=== PATIENT | female | born 1960 | race Caucasian/White ===

== ENCOUNTER → 2017-07-27 14:52 | Outpatient (CLI) | payer OTHER, SELFPAY ==
--- NOTE | 2017-07-27 | DI.MG.S_ITS ---
BILATERAL DIGITAL SCREENING MAMMOGRAM 3D/2D WITH CAD: 07/27/2017 CLINICAL: Routine screening. Family history of breast cancer. Comparison is made to exams dated: 07/26/2015 mammogram - [facility], 05/26/2010 mammogram, and 01/06/2009 mammogram - [facility]. The tissue of both breasts is heterogeneously dense. This may lower the sensitivity of mammography. Current study was also evaluated with a Computer Aided Detection (CAD) system. No significant masses, calcifications, or other findings are seen in either breast. There has been no significant interval change. IMPRESSION: NEGATIVE There is no mammographic evidence of malignancy. A 1 year screening mammogram is recommended. This exam was interpreted at Station ID: [id number]. NOTE: For mammograms, a report in lay terms will be sent to the patient. Approximately 15% of breast malignancies will not be visualized mammographically. In the management of a palpable breast mass, a negative mammogram must not discourage biopsy of a clinically suspicious lesion. Electronically Signed By: Mary mathews/sherry:07/30/2017 07:29:27 letter sent: Normal Exam ACR BI-RADS Category 1: Negative 3341F
== END ==
PROVIDERS: Family Provider Internal Medicine; PCP Internal Medicine; Visit Provider Internal Medicine
DX: Z12.31 Encounter for screening mammogram for malignant neoplasm of breast (principal)
CPT/HCPCS: 77063; 77067

== ENCOUNTER → 2017-09-19 10:02 | Outpatient (CLI) | payer OTHER, SELFPAY ==
[2017-09-19 10:45] LABS: Add Manual Diff / Slide Review NO; Basophils Percent Auto 0.9 % (0-2); Eosinophils Percent Auto 0.6 % (2-4); Mean Corpuscular HGB Conc 34.2 % (30-36); Mean Corpuscular Hemoglobin 32.7 PG (26-34); Mean Corpuscular Volume 95.7 fL (80-100); Monocytes Percent Auto 8.4 % (3-14); Neutrophils Absolute Auto 3100 /uL (3000-5900); Neutrophils Percent Auto 56.1 % (50-75); Platelet Count 200 X10^3/uL (150-400); Red Blood Cell Count 3.97 X10^6/uL (4.0-5.2); Red Cell Distribution Width 12.1 % (11.6-14.8); White Blood Cell Count 5.5 X10^3/uL (4.5-11.0)
[2017-09-19 11:37] LABS: Alanine Aminotransferase 53 IU/L (9-52); Albumin 4.8 g/dL (3.5-5.0); Albumin Globulin Ratio 1.5 (1.0-2.8); Alkaline Phosphatase 109 U/L (38-126); Aspartate Aminotransferase 49 IU/L (14-36); BUN Creatinine Ratio 33.3 (6-22); Bilirubin Total 0.5 mg/dL (0.2-1.3); Blood Urea Nitrogen 20 mg/dL (7-17); Calcium 10.3 mg/dL (8.4-10.2); Carbon Dioxide 32 mmol/L (22-32); Chloride 97 mmol/L (98-107); Estimated Glomerular Filt Rate > 60.0 mL/min (>60); Globulin 3.1 g/dL (1.7-4.1); Glucose 85 mg/dL (70-100); HEMOLYSIS < 15 (0-50); Potassium 3.7 mmol/L (3.4-5.1); Sodium 141 mmol/L (137-145); Total Protein 7.9 g/dL (6.3-8.2)
[2017-09-19 11:47] LABS: HIV 1 and 2 Antibody NEGATIVE (NEGATIVE)
[2017-09-19 12:06] LABS: Cancer Antigen 125 < 6 U/mL (0-35); Thyroid Stimulating Hormone 3.61 uIU/mL (0.47-4.68)
[2017-09-19 12:12] LABS: Hep C Virus Ab w/Reflex Quant NEGATIVE s/c (NEGATIVE)
== END ==
PROVIDERS: Family Provider Internal Medicine; PCP Internal Medicine; Visit Provider Internal Medicine
DX: R64 Cachexia (principal)
CPT/HCPCS: 36415; 80053; 82378; 84443; 85025; 86304; 86703; 86803

== ENCOUNTER → 2017-10-21 12:44 | Outpatient (CLI) | payer OTHER, SELFPAY ==
[2017-10-21 13:32] LABS: Alanine Aminotransferase 49 IU/L (9-52); Albumin 4.4 g/dL (3.5-5.0); Albumin Globulin Ratio 1.5 (1.0-2.8); Alkaline Phosphatase 78 U/L (38-126); Aspartate Aminotransferase 43 IU/L (14-36); BUN Creatinine Ratio 25.7 (6-22); Bilirubin Total 0.5 mg/dL (0.2-1.3); Blood Urea Nitrogen 18 mg/dL (7-17); Calcium 9.5 mg/dL (8.4-10.2); Carbon Dioxide 35 mmol/L (22-32); Chloride 99 mmol/L (98-107); Estimated Glomerular Filt Rate > 60.0 mL/min (>60); Globulin 2.9 g/dL (1.7-4.1); Glucose 94 mg/dL (70-100); HEMOLYSIS < 15 (0-50); Potassium 3.8 mmol/L (3.4-5.1); Sodium 141 mmol/L (137-145); Total Protein 7.3 g/dL (6.3-8.2)
[2017-10-24 17:18] LABS: Fecal Immunochemical Test NOT DETECTED
== END ==
PROVIDERS: PCP Internal Medicine; Visit Provider Internal Medicine
DX: R64 Cachexia (principal); Z12.11 Encounter for screening for malignant neoplasm of colon; R94.5 Abnormal results of liver function studies
CPT/HCPCS: 36415; 80053; 82274

== ENCOUNTER → 2017-12-18 10:21 | Outpatient (CLI) | payer OTHER, SELFPAY ==
[2017-12-18 14:28] LABS: Erythrocyte Sedimentation Rate 10 MM/HR (0-20)
[2017-12-18 14:58] LABS: C-Reactive Protein Quant < 0.5 mg/dL (<1.0); Rheumatoid Factor < 8.6 IU/mL (<12.0)
[2017-12-20 15:07] LABS: ANA Screen, IFA Negative (Negative)
== END ==
PROVIDERS: PCP Internal Medicine; Visit Provider Internal Medicine
DX: M25.541 Pain in joints of right hand (principal); M25.542 Pain in joints of left hand
CPT/HCPCS: 85651; 86038; 86140; 86430

== ENCOUNTER → 2020-07-07 14:16 | Outpatient (CLI) | payer OTHER, MEDICAID, SELFPAY ==
--- NOTE | 2020-07-07 | DI.RAD.S_ITS ---
PROCEDURE: XR FOOT RT MIN 3V INDICATIONS: FOOT PAIN TECHNIQUE: 3 views of the foot were acquired. COMPARISON: None. FINDINGS: Bones: No fractures or dislocations. No suspicious bony lesions. Soft tissues: No tibiotalar joint effusion. Achilles tendon appears normal. IMPRESSION: No fracture. No osseous lesion. If symptoms and/or clinical suspicion for pathology persists, further assessment with advanced imaging (e.g. CT, MRI or bone scan) should be considered. Dictated by: Geri Laguerre MD, PhD on 07/07/2020 at 18:22 Approved by: Geri Laguerre MD, PhD on 07/07/2020 at 18:23
--- NOTE | 2020-07-07 | DI.RAD.S_ITS ---
PROCEDURE: XR FOOT LT MIN 3V INDICATIONS: FOOT PAIN TECHNIQUE: 3 views of the foot were acquired. COMPARISON: None. FINDINGS: Bones: No fractures or dislocations. No suspicious bony lesions. Soft tissues: No tibiotalar joint effusion. Achilles tendon appears normal. IMPRESSION: No osseous lesion. If symptoms and/or clinical suspicion for pathology persists, further assessment with advanced imaging (e.g. CT, MRI or bone scan) should be considered. Dictated by: Geri Laguerre MD, PhD on 07/07/2020 at 18:21 Approved by: Geri Laguerre MD, PhD on 07/07/2020 at 18:22
== END ==
PROVIDERS: Family Provider Internal Medicine; PCP Internal Medicine; Referring Provider Internal Medicine; Visit Provider Internal Medicine
DX: M79.671 Pain in right foot (principal); M79.672 Pain in left foot
CPT/HCPCS: 73620; 73630

== ENCOUNTER → 2020-07-19 16:21 | Outpatient (CLI) | payer OTHER, MEDICAID, SELFPAY ==
--- NOTE | 2020-07-19 | DI.MG.S_ITS ---
BILATERAL DIGITAL SCREENING MAMMOGRAM 3D/2D WITH CAD: 07/19/2020 CLINICAL: Routine screening. Family history of breast cancer. Comparison is made to exams dated: 07/27/2017 mammogram, 07/26/2015 mammogram - [facility], and 05/26/2010 mammogram - [facility]. The tissue of both breasts is heterogeneously dense. This may lower the sensitivity of mammography. Current study was also evaluated with a Computer Aided Detection (CAD) system. No significant masses, calcifications, or other findings are seen in either breast. There has been no significant interval change. IMPRESSION: NEGATIVE There is no mammographic evidence of malignancy. A 1 year screening mammogram is recommended. This exam was interpreted at Station ID: [id number]. NOTE: For mammograms, a report in lay terms will be sent to the patient. Approximately 15% of breast malignancies will not be visualized mammographically. In the management of a palpable breast mass, a negative mammogram must not discourage biopsy of a clinically suspicious lesion. Electronically Signed By: Faby rhodes/sherry:07/19/2020 17:02:25 letter sent: Normal Exam ACR BI-RADS Category 1: Negative 3341F
== END ==
PROVIDERS: Family Provider Internal Medicine; PCP Internal Medicine; Referring Provider Internal Medicine; Visit Provider Internal Medicine
DX: Z12.31 Encounter for screening mammogram for malignant neoplasm of breast (principal); Z80.3 Family history of malignant neoplasm of breast
CPT/HCPCS: 77063; 77067

== ENCOUNTER → 2020-08-12 08:36 | Outpatient (CLI) | payer OTHER, MEDICAID, SELFPAY ==
[2020-08-12] MEDS: COVID-19 VACC #2, MRNA(MOD) 100 MCG/0.5 ML VIAL IM (08:42)
== END ==
PROVIDERS: Family Provider Internal Medicine; PCP Internal Medicine; Visit Provider Internal Medicine
DX: Z23 Encounter for immunization (principal)
CPT/HCPCS: 0012A; 91301

== ENCOUNTER → 2022-07-17 11:42 | Outpatient (CLI) | payer OTHER, MEDICAID, SELFPAY ==
--- NOTE | 2022-07-17 | DI.MG.S_ITS ---
BILATERAL DIGITAL SCREENING MAMMOGRAM 3D/2D WITH CAD: 07/17/2022 CLINICAL: Routine screening. Family history of breast cancer. Comparison is made to exams dated: 07/19/2020 mammogram, 07/27/2017 mammogram, and 07/26/2015 mammogram - [facility]. Both breasts are heterogeneously dense, which may obscure small masses (category c / 51-75% glandular tissue). Current study was also evaluated with a Computer Aided Detection (CAD) system. No significant masses, calcifications, or other findings are seen in either breast. There has been no significant interval change. IMPRESSION: NEGATIVE There is no mammographic evidence of malignancy. A 1 year screening mammogram is recommended. Based on the Tyrer Cuzick model (a risk assessment model) the patient's lifetime risk is 9.3% and her 10 year risk is 3.8%. According to the ACR, ACS, and NCCN guidelines, an annual breast MRI exam along with mammogram is recommended if the patient's lifetime risk is 20% or greater. This exam was interpreted at Station ID: [id number]. NOTE: For mammograms, a report in lay terms will be sent to the patient. Approximately 15% of breast malignancies will not be visualized mammographically. In the management of a palpable breast mass, a negative mammogram must not discourage biopsy of a clinically suspicious lesion. Electronically Signed By: Faby rhodes/sherry:07/17/2022 16:39:19 letter sent: Normal Exam ACR BI-RADS Category 1: Negative 3341F
--- NOTE | 2022-07-17 | DI.RAD.S_ITS ---
Bone Density Report Name: HUGO ESCOBAR Age: 62 Sex: Female Ethnicity: White Date of : 1960 Indication: postmenopausal; screening for osteoporosis; Referring Provider: FLORA JOHNSON Study: Bone densitometry was performed. Exam Date: July 17, 2022 Accession number: [id number] Bone Density: Region BMD T-score Z-score Classification AP Spine(L1-L4) 0.889 -1.4 0.0 Osteopenia Femoral Neck (Left) 0.562 -2.6 -1.3 Osteoporosis Total Hip (Left) 0.585 -2.9 -2.0 Osteoporosis Femoral Neck (Right) 0.517 -3.0 -1.7 Osteoporosis Total Hip (Right) 0.630 -2.6 -1.6 Osteoporosis Total Hip Mean 0.608 -2.8 -1.8 Osteoporosis World Health Organization criteria for BMD impression classify patients as: Normal (T-score at or above -1.0), Osteopenia (T-score between -1.0 and -2.5), or Osteoporosis (T-score at or below -2.5). Impression: The patient has osteoporosis, based on the Right Femoral Neck T-score. Discussion: INCREASED RISK OF FRACTURE. BONE DENSITY IS UNDESIRABLY LOW AT ONE OR MORE SKELETAL SITES, CONSISTENT WITH POSTMENOPAUSAL OSTEOPOROSIS. This patient's lowest T-score meets the World Health Organization's (WHO) criteria for osteoporosis at one or more sites (T-score -2.5 or below). In untreated patients, the risk of osteoporotic fracture increases approximately two-fold for each 1.0 SD decrease in T-score. Low bone density is not the only risk factor for fracture; also consider factors such as patient's age, frailty or poor health, risk of falling, risk of injury, previous osteoporotic fracture, family history of osteoporosis, cigarette smoking, low body weight, etc. Not everyone with low bone mineral density has osteoporosis; osteomalacia and other metabolic bone disorders should also be considered. Patients who have osteoporosis should be evaluated for specific diseases and conditions (secondary causes) that may cause or contribute to bone loss. The [place] Association of Clinical Endocrinologists (AACE) and National Osteoporosis Foundation (NOF) recommend pharmacologic intervention for all postmenopausal women whose T-score is in this range. The patient should follow a healthful lifestyle (good nutrition with adequate calcium and vitamin D, and appropriate weight-bearing exercise). Follow-Up: Consider a repeat BMD and Vertebral Fracture Assessment (VFA) exam in 2 years or sooner if medically necessary, to reassess this patient's status. Reported by: RYAN NORIEGA M.D. on 07/17/2022 12:02:00 PM.
== END ==
PROVIDERS: Family Provider Internal Medicine; PCP Internal Medicine; Referring Provider Internal Medicine; Visit Provider Internal Medicine
DX: Z12.31 Encounter for screening mammogram for malignant neoplasm of breast (principal); M81.0 Age-related osteoporosis without current pathological fracture; Z80.3 Family history of malignant neoplasm of breast
CPT/HCPCS: 77063; 77067; 77080

== ENCOUNTER 2022-08-28 10:30 | Outpatient (RCR) | payer OTHER, MEDICAID, SELFPAY ==
--- NOTE | 2022-08-23 17:44 | PT.OIE ---
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) Past Medical History (Last Updated 09/01/17 @ 22:19 by Sirisha Bey) Shoulder pain (~2007) Skin cancer (~2004) Past Surgical History (Last Updated 09/01/17 @ 22:19 by Sirisha Bey) Anesthesia History of shoulder surgery Status post rotator cuff repair (~2004) Visit Care Team Role Provider Type EVA Sigala Attending Provider Advanced [employer]oples[employer] Business Analyst Family Provider Primary Care Provider Referring Provider Specialty: [facility] Practice Address: [address] [place] [address], [facility] Email: [email or web address] Physical Therapy Initial Evaluation PT-OP-A Visit Information Start: 08/17/22 18:46 Freq: Status: Active Protocol: Document 08/23/22 11:24 LRN (Rec: 08/23/22 12:24 LRN [id number]) Out-Patient Physical Therapy Visit Information Visit Information Visit Type Initial Evaluation Visit Start Time 11:25 Visit Stop Time 12:17 Total Visit Minutes 49 Visit Number 1 Evaluation Information Evaluation Date 08/23/22 Precautions Precautions Osteoporosis. Unknown bump of lateral R wrist that could be a cyst. R RC surgery (> 10 yrs ago with residual pain when sleeping on it). PT-OP-B Current Condition Start: 08/17/22 18:46 Freq: Status: Active Protocol: Document 08/23/22 11:24 LRN (Rec: 08/23/22 12:24 LRN [id number]) Current Condition History of Current Condition Onset Date 10/2021 Current Complaints R thumb and medial wrist History of Current Condition Insidious onset of bump on anterior R lateral wrist 2021. Pt states she was seen in [place], [place], and through ultrasound was told there was a pulse to it and was told she needed further testing, but she did not return for further testing. In 07/2022 she went to [facility] and was told it is probably a ganglion cyst and was sent to physical therapy. Pt referral for Palmar fascial fibromatosis, ganglion cyst R wrist and L wrist pain. Pt denies having L wrist pain. Pt reports pain in R thumb, some days, but no pattern to the pain. Her primary concern is the cyst on the R wrist and a bump on a L finger. Prior Treatments and Tests Pt reports an Ultrasound to R lateral wrist bump, done in [place], [place] did not lead to a diagnosis. Future Testing and Treatments Planned None Developmental History Developmental History PMH reported: R RC surgery, Osteoporosis, Arthritis. Treatment Goals Patient/Caregiver Goals Pt goal: improve R hand strength (pt R handed) to improve ability to open jars, and mprove endurance to writing. Personal Factors Other Personal Factors That May Effect Osteoporosis (-3.2) Therapy/Recovery PT-OP-C Subjective Start: 08/17/22 18:46 Freq: Status: Active Protocol: Document 08/23/22 11:24 LRN (Rec: 08/23/22 12:24 LRN [id number]) Patient Questionnaires Quick Dash- Upper Extremity Quick Dash UE Score 25 Quick Dash UE Impairment 20 to 39% Impaired (Score 20- 39) OP-PT Pain Assessment Pain Assessment Grid Paper Pain Assessment Grid Completed Yes Location R thumb Pain Location Details R Thenar [place] and lateral border of thumb Intensity 2 Scale Used Numeric (0 - 10) Description Aching PT-OP-J Posture/Palpation/Skin Start: 08/17/22 18:46 Freq: Status: Active Protocol: Document 08/23/22 11:24 LRN (Rec: 08/23/22 12:24 LRN [id number]) Posture Evaluation Position Standing Head/C-Spine Posture Side Bent Left Shoulder Posture (L) Elevated Scapula Posture (L) Elevated Arm Posture (L) Internally Rotated,(R) Internally Rotated Pelvis Posture (L) Iliac Crest Superior Sitting Arm Posture (L) Internally Rotated,(R) Internally Rotated Comments Posture Comments Level greater trochanters. Tilt of lumbar spine to the left. Palpation Assessment Location Palm of hands Palpation Location Palm of hands Palpation Findings Soft Tissue Tightness Palpation Details Tightening of finger flexor tendons. L wrist Palpation Location L wrist Palpation Details No pain R thumb Palpation Location Lateral R thumb Opponens. Palpation Findings Tenderness R wrist Palpation Location General wrist region of carpal bones (with PA) Palpation Findings Tenderness Palpation Details Soft bump on radial side of index finger flexor tendon ( FDP). Compression did not elicit pain, but pt reported when wrapped it is painful. Skin Assessment Other Assessments Skin Assessment Comments Skin is thin and fragile. Tightening of the skin and fascia of the palms bilaterally. PT-OP-K Range of Motion Start: 08/17/22 18:46 Freq: Status: Active Protocol: Document 08/23/22 11:24 LRN (Rec: 08/23/22 12:24 LRN [id number]) Wrist Goniometric Range of Motion Wrist Right Flexion Active (degrees) 65 Extension Active (degrees) 64 Ulnar Deviation Active (degrees) 22 Radial Deviation Active (degrees) 22 Left Flexion Active (degrees) 70 Extension Active (degrees) 60 Ulnar Deviation Active (degrees) 20 Radial Deviation Active (degrees) 18 Thumb Goniometric Range of Motion Thumb Right CMC Extension Active (degrees) 45 Opposition to 5th Digit Base (cm) 0 Comments CMC AB: 60 deg's Left CMC Extension Active (degrees) 45 Opposition to 5th Digit Base (cm) 0 Comments CMC AB is 50 deg's. PT-OP-L Special Tests Start: 08/17/22 18:46 Freq: Status: Active Protocol: Document 08/23/22 11:24 LRN (Rec: 08/23/22 12:24 LRN [id number]) Special Tests Wrist/Hand Special Tests [facility] Subluxation Test Results Neg for R wrist PT-OP-M Strength Start: 08/17/22 18:46 Freq: Status: Active Protocol: Document 08/23/22 11:24 LRN (Rec: 08/23/22 12:24 LRN [id number]) Wrist Strength Wrist Manual Muscle Testing Right Comments 5/5 all motions. Tenderness in lateral medial side of wrist with flex UD, and sup/pron. Left Comments 5/5 all motions. Finger/Thumb Strength Finger Manual Muscle Testing Left Thumb Comments All 5/5 Right Thumb Comments All 5/5 Hand Nitric Acid Concentrator Operator/Pinch Strength Hand Dominance Hand Dominance Right Hand Strength Right Comments Nitric Acid Concentrator Operator strength in kgs (3 trials taken): Right: 14kg/30#, 19kg/20#, 8kg/18# (Norm for female age 60-64 is 25 R). Left Comments Nitric Acid Concentrator Operator strength in kgs (3 trials taken): Left: 18 kg/24#, 12kg, ?22#, 10/21# (Norm for female age 60-64 is 20.7 L). PT-OP-Q Treatments Start: 08/17/22 18:46 Freq: Status: Active Protocol: Document 08/23/22 11:24 LRN (Rec: 08/23/22 12:24 LRN [id number]) Self-Care/Home Management Treatment Education Patient Education Home Exercise Program Other Education Discussed results of evaluation, goals, and plan of care (POC). Pt agreeable to goals and POC. Activities Self-Care/Home Management Activities I/S pt in active wrist flex/ ext/sup/pron/UD/RD ROM and discussed use of wrist compression wrap of bracelet form coverer pressure to prevent pain. PT-OP-T Assessment and Plan Start: 08/17/22 18:46 Freq: Status: Active Protocol: Document 08/23/22 11:24 LRN (Rec: 08/23/22 12:24 LRN [id number]) Physical Therapy Assessment Rehab Potential Rehabilitation Potential Good Evaluation Complexity Number of Personal Factors/Comorbidities 1-2 Number of Body Systems Impaired 4 or More Clinical Presentation at Evaluation Evolving Impairments Impairments Activity Tolerance,ROM,Soft Tissue Mobility,Strength Other Impairments Ganglion cyst Goals Two Impairment Decreased R hand strength Impairment Nitric Acid Concentrator Operator strength: (norm for female age 60-64 is 25kg R, 20 .7 kg L). R hand: 14kg/30#, 19kg/20#, 8kg/18#, L hand: 18 kg/24#, 12kg, ?22# , 10/21# Custodial Goal (LTG) Improve R hand strength to improve ability to open jars, and improve endurance for writing without hand fatiguing . LTG Duration 09/22/22 One Impairment HEP Short Term Goal (STG) Pt will be educated in edema management of cryotherapy and contrast bath treatment. STG Duration 09/07/22 Glazier Stained Glass Goal (LTG) Pt will be educated in a self long-term exer program of wrist ROM (flexion/ext), hand/ fingers (ext) strength hand ( opponens, gripping). LTG Duration 09/22/22 Assessment Summary Assessment Pt is a 62 yo female who presents with concerns of a bump on her R anterior wrist that appears to be a ganglion cyst that is not painful on palpation and does not appear to hinder her wrist mobility. She does show strength loss with R epic application coordinator strength of 14kg R , 18kg L (norm for female age 60-64 is 25kg R, 20.7 kg L). The pt has mild decrease in active wrist flexion and only reports pain at the R wrist with opponens of R thumb and 5th digit. With palpation she has mild discomfort at the R wrist small bones. She does appear to have tightening of her palmar fascia (Dupuytren) bilaterally and tightening of her finger flexor tendons. She denies any L wrist pain. The pt would benefit from skilled physical therapy for R hand/wrist/thumb strengthening, R wrist ROM ex' s and pt education in self care of inflammation and pain (cryotherapy and contrast bath , wrapping). The pt's skin is thin and fragile and would not be appropriate for Kinesiotape for swelling. The pt's main concern is the cyst on the R wrist; therefore she will be seen for therapy to place on home program of R wrist ROM and wrist/hand strengthening and will be referred back to referring provider for care of the ganglion cyst. Physical Therapy Plan Frequency and Duration Frequency of Treatment 2x/Week Plan of Care Start Date 08/23/22 Plan of Care End Date 09/22/22 Therapeutic Interventions Therapeutic Interventions Home Exercise Program,Joint Mobilizations,Manual Therapy, Patient/Caregiver Education, Self-Care/Home Management,Soft Tissue Mobilization,Taping, Therapeutic Exercises Modalities Cold Pack/Ice Massage,Electric Stimulation,Hot Packs, Paraffin Bath,Ultrasound Next Visit Focus/Plan Next Note Type Treatment Note Next Visit Plan 2x/week for first week, then 1x/week for up to 3 more weeks for placement on a self care HEP for the R wrist, hand and thumb. Assess CMC flexion ROM . Pt education in contrast bath treatment.
--- NOTE | 2022-08-23 17:45 | PT.OPPOC ---
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 Plan Of Care PT-OP-T Assessment and Plan Start: 08/17/22 18:46 Freq: Status: Active Protocol: Document 08/23/22 11:24 LRN (Rec: 08/23/22 12:24 LRN [id number]) Physical Therapy Assessment Rehab Potential Rehabilitation Potential Good Evaluation Complexity Number of Personal Factors/Comorbidities 1-2 Number of Body Systems Impaired 4 or More Clinical Presentation at Evaluation Evolving Impairments Impairments Activity Tolerance,ROM,Soft Tissue Mobility,Strength Other Impairments Ganglion cyst Goals Two Impairment Decreased R hand strength Impairment Fire Fighter strength: (norm for female age 60-64 is 25kg R, 20 .7 kg L). R hand: 14kg/30#, 19kg/20#, 8kg/18#, L hand: 18 kg/24#, 12kg, ?22# , 10/21# Building Official Goal (LTG) Improve R hand strength to improve ability to open jars, and improve endurance for writing without hand fatiguing . LTG Duration 09/22/22 One Impairment HEP Short Term Goal (STG) Pt will be educated in edema management of cryotherapy and contrast bath treatment. STG Duration 09/07/22 Building Official Goal (LTG) Pt will be educated in a self mcc exer program of wrist ROM (flexion/ext), hand/ fingers (ext) strength hand ( opponens, gripping). LTG Duration 09/22/22 Assessment Summary Assessment Pt is a 62 yo female who presents with concerns of a bump on her R anterior wrist that appears to be a ganglion cyst that is not painful on palpation and does not appear to hinder her wrist mobility. She does show strength loss with R manager field investigations strength of 14kg R , 18kg L (norm for female age 60-64 is 25kg R, 20.7 kg L). The pt has mild decrease in active wrist flexion and only reports pain at the R wrist with opponens of R thumb and 5th digit. With palpation she has mild discomfort at the R wrist small bones. She does appear to have tightening of her palmar fascia (Dupuytren) bilaterally and tightening of her finger flexor tendons. She denies any L wrist pain. The pt would benefit from skilled physical therapy for R hand/wrist/thumb strengthening, R wrist ROM ex' s and pt education in self care of inflammation and pain (cryotherapy and contrast bath , wrapping). The pt's skin is thin and fragile and would not be appropriate for Kinesiotape for swelling. The pt's main concern is the cyst on the R wrist; therefore she will be seen for therapy to place on home program of R wrist ROM and wrist/hand strengthening and will be referred back to referring provider for care of the ganglion cyst. Physical Therapy Plan Frequency and Duration Frequency of Treatment 2x/Week Plan of Care Start Date 08/23/22 Plan of Care End Date 09/22/22 Therapeutic Interventions Therapeutic Interventions Home Exercise Program,Joint Mobilizations,Manual Therapy, Patient/Caregiver Education, Self-Care/Home Management,Soft Tissue Mobilization,Taping, Therapeutic Exercises Modalities Cold Pack/Ice Massage,Electric Stimulation,Hot Packs, Paraffin Bath,Ultrasound Next Visit Focus/Plan Next Note Type Treatment Note Next Visit Plan 2x/week for first week, then 1x/week for up to 3 more weeks for placement on a self care HEP for the R wrist, hand and thumb. Assess CMC flexion ROM . Pt education in contrast bath treatment. Plan of Care Dates Plan of Care Start Date 08/23/22 Plan of Care End Date 09/22/22 Electronically Signed by: Mary Bernardo, PT 08/24/22 2600 If you are in agreement with this Plan of Care, please return a signed and dated copy. I have reviewed this Plan of Care and certify that the skilled therapy services above are required to meet the patient?s needs. Physician Signature Date Printed Name and Credentials Clinical Instructor Signature Printed Name and Credentials
--- NOTE | 2022-08-28 16:52 | PT.OTN ---
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 Unknown bump of lateral R wrist that could be a cyst. R RC surgery (> 10 yrs ago with residual pain when sleeping on it). PT-OP-B Current Condition Start: 08/17/22 18:46 Freq: Status: Active Protocol: Document 08/23/22 11:24 LRN (Rec: 08/23/22 12:24 LRN [id number]) Current Condition History of Current Condition Onset Date 10/2021 Current Complaints R thumb and medial wrist History of Current Condition Insidious onset of bump on anterior R lateral wrist 2021. Pt states she was seen in [place], [place], and through ultrasound was told there was a pulse to it and was told she needed further testing, but she did not return for further testing. In 07/2022 she went to [facility] and was told it is probably a ganglion cyst and was sent to physical therapy. Pt referral for Palmar fascial fibromatosis, ganglion cyst R wrist and L wrist pain. Pt denies having L wrist pain. Pt reports pain in R thumb, some days, but no pattern to the pain. Her primary concern is the cyst on the R wrist and a bump on a L finger. Prior Treatments and Tests Pt reports an Ultrasound to R lateral wrist bump, done in [place], [place] did not lead to a diagnosis. Future Testing and Treatments Planned None Developmental History Developmental History PMH reported: R RC surgery, Osteoporosis, Arthritis. Treatment Goals Patient/Caregiver Goals Pt goal: improve R hand strength (pt R handed) to improve ability to open jars, and mprove endurance to writing. Personal Factors Other Personal Factors That May Effect Osteoporosis (-3.2) Therapy/Recovery PT-OP-C Subjective Start: 08/17/22 18:46 Freq: Status: Active Protocol: Document 08/28/22 10:33 LRN (Rec: 08/28/22 16:48 LRN [id number]) OP-PT Subjective Patient Comments Patient Comments Under a lot of stress. PT-OP-J Posture/Palpation/Skin Start: 08/17/22 18:46 Freq: Status: Active Protocol: Document 08/23/22 11:24 LRN (Rec: 08/23/22 12:24 LRN [id number]) Posture Evaluation Position Standing Head/C-Spine Posture Side Bent Left Shoulder Posture (L) Elevated Scapula Posture (L) Elevated Arm Posture (L) Internally Rotated,(R) Internally Rotated Pelvis Posture (L) Iliac Crest Superior Sitting Arm Posture (L) Internally Rotated,(R) Internally Rotated Comments Posture Comments Level greater trochanters. Tilt of lumbar spine to the left. Palpation Assessment Location Palm of hands Palpation Location Palm of hands Palpation Findings Soft Tissue Tightness Palpation Details Tightening of finger flexor tendons. L wrist Palpation Location L wrist Palpation Details No pain R thumb Palpation Location Lateral R thumb Opponens. Palpation Findings Tenderness R wrist Palpation Location General wrist region of carpal bones (with PA) Palpation Findings Tenderness Palpation Details Soft bump on radial side of index finger flexor tendon ( FDP). Compression did not elicit pain, but pt reported when wrapped it is painful. Skin Assessment Other Assessments Skin Assessment Comments Skin is thin and fragile. Tightening of the skin and fascia of the palms bilaterally. PT-OP-K Range of Motion Start: 08/17/22 18:46 Freq: Status: Active Protocol: Document 08/23/22 11:24 LRN (Rec: 08/23/22 12:24 LRN [id number]) Wrist Goniometric Range of Motion Wrist Right Flexion Active (degrees) 65 Extension Active (degrees) 64 Ulnar Deviation Active (degrees) 22 Radial Deviation Active (degrees) 22 Left Flexion Active (degrees) 70 Extension Active (degrees) 60 Ulnar Deviation Active (degrees) 20 Radial Deviation Active (degrees) 18 Thumb Goniometric Range of Motion Thumb Right CMC Extension Active (degrees) 45 Opposition to 5th Digit Base (cm) 0 Comments CMC AB: 60 deg's Left CMC Extension Active (degrees) 45 Opposition to 5th Digit Base (cm) 0 Comments CMC AB is 50 deg's. PT-OP-L Special Tests Start: 08/17/22 18:46 Freq: Status: Active Protocol: Document 08/23/22 11:24 LRN (Rec: 08/23/22 12:24 LRN [id number]) Special Tests Wrist/Hand Special Tests [facility] Subluxation Test Results Neg for R wrist PT-OP-M Strength Start: 08/17/22 18:46 Freq: Status: Active Protocol: Document 08/23/22 11:24 LRN (Rec: 08/23/22 12:24 LRN [id number]) Wrist Strength Wrist Manual Muscle Testing Right Comments 5/5 all motions. Tenderness in lateral medial side of wrist with flex UD, and sup/pron. Left Comments 5/5 all motions. Finger/Thumb Strength Finger Manual Muscle Testing Left Thumb Comments All 5/5 Right Thumb Comments All 5/5 Hand Virtual Customer Assistant/Pinch Strength Hand Dominance Hand Dominance Right Hand Strength Right Comments Virtual Customer Assistant strength in kgs (3 trials taken): Right: 14kg/30#, 19kg/20#, 8kg/18# (Norm for female age 60-64 is 25 R). Left Comments Virtual Customer Assistant strength in kgs (3 trials taken): Left: 18 kg/24#, 12kg, ?22#, 10/21# (Norm for female age 60-64 is 20.7 L). PT-OP-Q Treatments Start: 08/17/22 18:46 Freq: Status: Active Protocol: Document 08/28/22 10:33 LRN (Rec: 08/28/22 11:20 LRN [id number]) Therapeutic Exercises Sitting Exercises Wrist AROM - 6way Sitting Exercise Name Active wrist flex/ext/UD/RD/ Sup/Pron Side right Reps/Minutes 15x each AROM hand intrinsics Sitting Exercise Name End finger/thumb curls>puppet position (straighten DIP/PIP) Side right Resistance 10x each ARom hand/finger tendon glides Sitting Exercise Name Straight>end finger curls>MCP flex>DIP ext>reverse Side bilateral Reps/Minutes 10x each AROM finger PIP flex/Ext Intrinsics Sitting Exercise Name End finger curls Side bilateral Reps/Minutes 10x each AROM finger Lumbricals Sitting Exercise Name Table top Side bilateral Reps/Minutes 10x each Self-Care/Home Management Treatment Education Patient Education Home Exercise Program,Pain Management Other Education Pt educated in self care of edema/pain management with contrast bath treatment. Activities Self-Care/Home Management Activities Issued & reviewed contrast bath handout. Issued & reviewed HEP: Wrist flex/ext, UD/RD, supination/ pronation, elbow ext/flex with I/S for use of resistance. Issued & reviewed HEP: Finger tendon glide ex's, and thumb flex/ext, hand card shuffle. Issued, but held on review: HEP: Elbow flex/ext strengthening. PT-OP-T Assessment and Plan Start: 08/17/22 18:46 Freq: Status: Active Protocol: Document 08/28/22 10:33 LRN (Rec: 08/28/22 11:20 LRN [id number]) Physical Therapy Assessment Goals Two Impairment Decreased R hand strength Impairment Virtual Customer Assistant strength: (norm for female age 60-64 is 25kg R, 20 .7 kg L). R hand: 14kg/30#, 19kg/20#, 8kg/18#, L hand: 18 kg/24#, 12kg, ?22# , 10/21# Halfway Goal (LTG) Improve R hand strength to improve ability to open jars, and improve endurance for writing without hand fatiguing . LTG Duration 09/22/22 One Impairment HEP Short Term Goal (STG) Pt will be educated in edema management of cryotherapy and contrast bath treatment. STG Duration 09/07/22 Halfway Goal (LTG) Pt will be educated in a self long term exer program of wrist ROM (flexion/ext), hand/ fingers (ext) strength hand ( opponens, gripping). 08/28/22: HEP issued for fingers tendon glides, and wrist/elbow strengthening LTG Duration 09/22/22 progressed 08/28/22 Assessment Summary Assessment Pt with concerns of a bump on her R anterior wrist that appears to be a ganglion cyst that is not painful and does not appear to hinder her wrist mobility. She may have another area of swelling beginning on the radial side of the wrist. She has a finger wart on the dorsal side of her ring finger. The pt showed good understanding of the finger exercises. Physical Therapy Plan Frequency and Duration Frequency of Treatment 2x/Week Plan of Care Start Date 08/23/22 Plan of Care End Date 09/22/22 Next Visit Focus/Plan Next Note Type Treatment Note Next Visit Plan 2x/week for first week, then 1x/week for up to 3 more weeks for placement on a self care HEP for the R wrist, hand and thumb. Assess CMC flexion ROM. Review previously issued HEP: Elbow flex/ext strengthening.
--- NOTE | 2022-10-18 10:39 | PT.OPDS ---
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) Visit Care Team Role Provider Type EVA Sigala Attending Provider Advanced Recoil [employer] W[employer] Family Provider Primary Care Provider Referring Provider Specialty: Family Practice Address: [address] [place] [address], [facility] Email: [email or web address] Visit Number Visit Number 2 Discharge Summary PT-OP-B Current Condition Start: 08/17/22 18:46 Freq: Status: Active Protocol: Document 08/23/22 11:24 LRN (Rec: 08/23/22 12:24 LRN [id number]) Current Condition History of Current Condition Onset Date 10/2021 Current Complaints R thumb and medial wrist History of Current Condition Insidious onset of bump on anterior R lateral wrist 2021. Pt states she was seen in [place], [place], and through ultrasound was told there was a pulse to it and was told she needed further testing, but she did not return for further testing. In 07/2022 she went to [facility] and was told it is probably a ganglion cyst and was sent to physical therapy. Pt referral for Palmar fascial fibromatosis, ganglion cyst R wrist and L wrist pain. Pt denies having L wrist pain. Pt reports pain in R thumb, some days, but no pattern to the pain. Her primary concern is the cyst on the R wrist and a bump on a L finger. Prior Treatments and Tests Pt reports an Ultrasound to R lateral wrist bump, done in [place], [place] did not lead to a diagnosis. Future Testing and Treatments Planned None Developmental History Developmental History PMH reported: R RC surgery, Osteoporosis, Arthritis. Treatment Goals Patient/Caregiver Goals Pt goal: improve R hand strength (pt R handed) to improve ability to open jars, and mprove endurance to writing. Personal Factors Other Personal Factors That May Effect Osteoporosis (-3.2) Therapy/Recovery PT-OP-C Subjective Start: 08/17/22 18:46 Freq: Status: Active Protocol: Document 08/28/22 10:33 LRN (Rec: 08/28/22 16:48 LRN [id number]) OP-PT Subjective Patient Comments Patient Comments Under a lot of stress. PT-OP-J Posture/Palpation/Skin Start: 08/17/22 18:46 Freq: Status: Active Protocol: Document 08/23/22 11:24 LRN (Rec: 08/23/22 12:24 [facility] [id number]) Posture Evaluation Position Standing Head/C-Spine Posture Side Bent Left Shoulder Posture (L) Elevated Scapula Posture (L) Elevated Arm Posture (L) Internally Rotated,(R) Internally Rotated Pelvis Posture (L) Iliac Crest Superior Sitting Arm Posture (L) Internally Rotated,(R) Internally Rotated Comments Posture Comments Level greater trochanters. Tilt of lumbar spine to the left. Palpation Assessment Location Palm of hands Palpation Location Palm of hands Palpation Findings Soft Tissue Tightness Palpation Details Tightening of finger flexor tendons. L wrist Palpation Location L wrist Palpation Details No pain R thumb Palpation Location Lateral R thumb Opponens. Palpation Findings Tenderness R wrist Palpation Location General wrist region of carpal bones (with PA) Palpation Findings Tenderness Palpation Details Soft bump on radial side of index finger flexor tendon ( FDP). Compression did not elicit pain, but pt reported when wrapped it is painful. Skin Assessment Other Assessments Skin Assessment Comments Skin is thin and fragile. Tightening of the skin and fascia of the palms bilaterally. PT-OP-K Range of Motion Start: 08/17/22 18:46 Freq: Status: Active Protocol: Document 08/23/22 11:24 LRN (Rec: 08/23/22 12:24 [facility] [id number]) Wrist Goniometric Range of Motion Wrist Right Flexion Active (degrees) 65 Extension Active (degrees) 64 Ulnar Deviation Active (degrees) 22 Radial Deviation Active (degrees) 22 Left Flexion Active (degrees) 70 Extension Active (degrees) 60 Ulnar Deviation Active (degrees) 20 Radial Deviation Active (degrees) 18 Thumb Goniometric Range of Motion Thumb Right CMC Extension Active (degrees) 45 Opposition to 5th Digit Base (cm) 0 Comments CMC AB: 60 deg's Left CMC Extension Active (degrees) 45 Opposition to 5th Digit Base (cm) 0 Comments CMC AB is 50 deg's. PT-OP-L Special Tests Start: 08/17/22 18:46 Freq: Status: Active Protocol: Document 08/23/22 11:24 LRN (Rec: 08/23/22 12:24 [facility] [id number]) Special Tests Wrist/Hand Special Tests [facility] Subluxation Test Results Neg for R wrist PT-OP-M Strength Start: 08/17/22 18:46 Freq: Status: Active Protocol: Document 08/23/22 11:24 LRN (Rec: 08/23/22 12:24 N [id number]) Wrist Strength Wrist Manual Muscle Testing Right Comments 5/5 all motions. Tenderness in lateral medial side of wrist with flex UD, and sup/pron. Left Comments 5/5 all motions. Finger/Thumb Strength Finger Manual Muscle Testing Left Thumb Comments All 5/5 Right Thumb Comments All 5/5 Hand Jig Box Operator/Pinch Strength Hand Dominance Hand Dominance Right Hand Strength Right Comments Jig Box Operator strength in kgs (3 trials taken): Right: 14kg/30#, 19kg/20#, 8kg/18# (Norm for female age 60-64 is 25 R). Left Comments Jig Box Operator strength in kgs (3 trials taken): Left: 18 kg/24#, 12kg, ?22#, 10/21# (Norm for female age 60-64 is 20.7 L). PT-OP-T Assessment and Plan Start: 08/17/22 18:46 Freq: Status: Active Protocol: Document 10/18/22 10:35 LRN (Rec: 10/18/22 10:39 LRN [id number]) Physical Therapy Assessment Goals Two Impairment Decreased R hand strength Impairment Jig Box Operator strength: (norm for female age 60-64 is 25kg R, 20 .7 kg L). R hand: 14kg/30#, 19kg/20#, 8kg/18#, L hand: 18 kg/24#, 12kg, ?22# , 10/21# Jail Goal (LTG) Improve R hand strength to improve ability to open jars, and improve endurance for writing without hand fatiguing . LTG Duration 09/22/22 One Impairment HEP Short Term Goal (STG) Pt will be educated in edema management of cryotherapy and contrast bath treatment. STG Duration 09/07/22 Jail Goal (LTG) Pt will be educated in a self [facility] exer program of wrist ROM (flexion/ext), hand/ fingers (ext) strength hand ( opponens, gripping). 08/28/22: HEP issued for fingers tendon glides, and wrist/elbow strengthening LTG Duration 09/22/22 progressed 08/28/22 Assessment Summary Assessment Pt was seen for her initial eval and one treatment visit before calling to cancel her last appt and requesting discharge, reporting she no longer needed PT. Goals were not met; not able to assess due to early discharge. No further therapy or follow up planned; pt is being discharged from PT. Physical Therapy Plan Discharge Physical Therapy Discharge Reasons Patient Request Discharge Comments Thank you for your referral.
== END 2022-10-22 12:33 | disposition home or self-care (01) ==
LOC: PHYS 10:30
PROVIDERS: Family Provider Internal Medicine; PCP Internal Medicine; Referring Provider Internal Medicine; Visit Provider Internal Medicine
DX: M72.0 Palmar fascial fibromatosis [Dupuytren] (principal); M25.532 Pain in left wrist
CPT/HCPCS: 97110; 97162

== ENCOUNTER → 2022-09-03 15:18 | Outpatient (CLI) | payer OTHER, MEDICAID, SELFPAY ==
--- NOTE | 2022-09-03 | DI.RAD.S_ITS ---
PROCEDURE: XR T AND L SPINE 4 TO 5 VIEWS INDICATIONS: Scoliosis, unspecified TECHNIQUE: 2 views acquired of the thoracolumbar spine. COMPARISON: None. FINDINGS: Bones: There are 12 thoracic type vertebrae and 4 lumbar type vertebrae. L5 is sacralized. No acute fractures or dislocations. There is 7.2 ? dextroscoliosis with the apex at T12-L1. Grade 1 retrolisthesis of L4 on L5. No suspicious bony lesions. Degenerative disc disease, moderate at L4-L5, mild at multiple other levels. Moderate facet arthropathy at L3-L4, L4-L5 and L5-S1. Visualized ribs are intact. Note is made of right rotator cuff tendon repair. Soft tissues: No suspicious soft tissue calcifications. IMPRESSION: 1. Transitional anatomy with sacralization of L5. 2. 7.2 ? dextroscoliosis. 3. Degenerative disc disease, moderate at L4-L5, and mild at multiple other levels. 4. Moderate facet arthropathy at L3-L4, L4-L5 and L5-S1. 5. Grade 1 retrolisthesis of L4 on L5. Dictated by: Faviola Faria M.D. on 09/03/2022 at 21:30 Approved by: Faviola Faria M.D. on 09/03/2022 at 21:36
== END ==
PROVIDERS: Family Provider Internal Medicine; PCP Internal Medicine; Referring Provider Internal Medicine; Visit Provider Internal Medicine
DX: M41.9 Scoliosis, unspecified (principal); M47.816 Spondylosis without myelopathy or radiculopathy, lumbar region; M43.10 Spondylolisthesis, site unspecified
CPT/HCPCS: 72083

== ENCOUNTER → 2023-07-22 14:38 | Outpatient (CLI) | payer OTHER, MEDICAID, SELFPAY ==
--- NOTE | 2023-07-22 14:39 | DI.MG.S_ITS ---
BILATERAL DIGITAL SCREENING MAMMOGRAM 3D/2D WITH CAD: 07/22/2023 CLINICAL: Routine screening. Family history of breast cancer. Comparison is made to exams dated: 07/17/2022 mammogram and 07/19/2020 mammogram - [facility]. Both breasts are heterogeneously dense, which may obscure small masses (category c / 51-75% glandular tissue). Current study was also evaluated with a Computer Aided Detection (CAD) system. No significant masses, calcifications, or other findings are seen in either breast. There has been no significant interval change. IMPRESSION: NEGATIVE There is no mammographic evidence of malignancy. A 1 year screening mammogram is recommended. Based on the Tyrer Cuzick model (a risk assessment model) the patient's lifetime risk is 9.1% and her 10 year risk is 3.8%. According to the ACR, ACS, and NCCN guidelines, an annual breast MRI exam along with mammogram is recommended if the patient's lifetime risk is 20% or greater. This exam was interpreted at Station ID: [id number]. NOTE: For mammograms, a report in lay terms will be sent to the patient. Approximately 15% of breast malignancies will not be visualized mammographically. In the management of a palpable breast mass, a negative mammogram must not discourage biopsy of a clinically suspicious lesion. Electronically Signed By: Demetri tran/sherry:07/22/2023 19:23:24 letter sent: Normal Exam ACR BI-RADS Category 1: Negative [id number]
== END ==
PROVIDERS: Family Provider Internal Medicine; PCP Internal Medicine; Referring Provider Internal Medicine; Visit Provider Internal Medicine
DX: Z12.31 Encounter for screening mammogram for malignant neoplasm of breast (principal); Z80.3 Family history of malignant neoplasm of breast; R92.333 Mammographic heterogeneous density, bilateral breasts
CPT/HCPCS: 77063; 77067